=== PATIENT | female | born 1940 | race Caucasian/White ===

== ENCOUNTER → 2016-11-01 | Outpatient (CLI) | payer MEDICARE, OTHER ==
[~2016-11-01] MED LIST: ACYCLOVIR400 MG; BP MED; BYSTOLIC5 MG; ELIQUIS2.5 MG; MACROBID100 M1 PO; NEURONTIN100 MG; NORCO 10-325 TA1 TAB; PROTONIX; ROBAXIN PO; VIROPTIC7.5 ML; VITAMIN D350000 UNIT; XANAX0.5 M1
--- NOTE | ~2016-11-01 | CR63 ---
[facility]. [facility] A Service of [facility] & [facility] RADIOLOGY TEXT RESULTS PATIENT: CARLITO MAN LOCATION: [facility] : 39 UNIT #: [id number] AGE: [address]: Mela Vilchis MD SEX: F ORDER DR: [id number] [address] [id number] O MR#: [id number] Acc #: [id number] NAME: CARLITO MAN : 1940 SEX: F STUDY DATE/TIME: 11/01/2016 13:13 UNIT: [facility] ROOM: STUDY DESCRIPTION: CR Chest 2 View Attending Physician: Mela Vilchis M.D. Referring Physician: Mela Vilchis M.D. Ordering Physician: Mela Vilchis M.D. Primary Care Physician: Mela Vilchis M.D. MEDICAL IMAGING REPORT This report is preliminary unless electronic signature is present. EXAM Two-view chest, 11/01/2016. HISTORY 76-year-old female with chest pain and shortness of air for 2 weeks. COMPARISON Chest, 10/17/2014. FINDINGS Two views of the chest demonstrate clear lungs. No pleural effusion or pneumothorax. Heart size and mediastinum are within normal limits. Pulmonary vasculature unremarkable. Left-sided pacing complex. IMPRESSION No acute cardiopulmonary findings. Dictated by... Josiah Ingram M.D. THIS IS AN ELECTRONICALLY VERIFIED REPORT Josiah Ingram M.D. at 11/06/2016 10:26 AM WANDA/abiodun TD: 11/02/2016 00:56 JOB #: [id number] MEDICAL IMAGING REPORT Page 1 of 1
== END | disposition home or self-care (01) ==
LOC: SRAD 13:07
DX: R07.9 Chest pain, unspecified (principal); R60.0 Localized edema
CPT/HCPCS: 71020

== ENCOUNTER → 2016-11-22 | Outpatient (CLI) | payer MEDICARE, OTHER ==
--- NOTE | ~2016-11-22 | CT52 ---
[facility] A Service of [facility] & [facility] RADIOLOGY TEXT RESULTS PATIENT: CARLITO MAN [facility] UNIT #: [id number] AGE: [address]: Josiah Wyatt MD SEX: F ORDER DR: [id number] [facility] [address] [place], [place] [address] [id number] O MR#: [id number] Acc #: [id number] NAME: CARLITO MAN. : 1940 SEX: F STUDY DATE/TIME: 11/22/2016 14:50 UNIT: [facility] ROOM: STUDY DESCRIPTION: CT Cervical Spine Wo Cont Attending Physician: Josiah Wyatt M.D. Referring Physician: Josiah Wyatt M.D. Ordering Physician: Josiah Wyatt M.D. Primary Care Physician: Mela Vilchis M.D. MEDICAL IMAGING REPORT This report is preliminary unless electronic signature is present EXAM CT cervical spine without contrast HISTORY 76-year-old female complains of neck pain radiating into right arm and down lower back for [address] exam was performed with one or more of the following radiation dose reduction techniques: automatic exposure control, adjustment of mA and/or kV according to patient size, and iterative reconstruction. FINDINGS Thin section axial images performed through the cervical spine with multiplanar reconstructions. No contrast administered. There is loss of the normal cervical lordosis in the midcervical spine. Craniocervical, cervicothoracic junction is unremarkable. Minimal arthritic change atlantoaxial joint. At C2-3 the disc space is maintained. No significant spinal stenosis. There is right C2-3 facet arthropathy. At C3-4 there is extensive left C3-4 foraminal stenosis due to a combination of uncovertebral osteophyte and facet arthropathy. This significantly compromises the exiting foramen. There may be mild posterior disc bulging at C3-4. At C4-5 there is advanced degenerative disc changes with disc space narrowing, broad-based posterior osteophyte. Bilateral foraminal stenosis due to a combination of osteophyte and facet arthropathy particularly on the left. STS. [facility] A Service of [facility] & [facility] RADIOLOGY TEXT RESULTS PATIENT: CARLITO MAN LOCATION: [facility] : 39 UNIT #: [id number] AGE: [address]: Josiah Wyatt MD SEX: F ORDER DR: At C5-6 there is advanced degenerative disc disease with disc space narrowing. Mild central canal stenosis due to a suspected broad-based posterior disc protrusion and mild osteophyte. There is predominately right C5-6 foraminal stenosis due to uncovertebral osteophyte. At C6-7 there is advanced degenerative disc changes with disc space narrowing. Broad-based disc protrusion osteophyte contributes to mild central canal stenosis. There is bilateral foraminal stenosis left greater than right, primarily due to uncovertebral osteophyte. At C7-T1 the disc space is maintained. No spinal or foraminal stenosis. Paravertebral soft tissues unremarkable except for atherosclerotic changes within the take off of the arch vessels. IMPRESSION Multilevel degenerative disc disease as described above in level by level detail. Degenerative disc changes most pronounced C4-5, C5-6 and C7-7. Multilevel foraminal stenosis noted but most severe on the left at C3-4. Please see above for level by level details. Dictated by... Luis M Lacey M.D. THIS IS AN ELECTRONICALLY VERIFIED REPORT Luis M Lacey M.D. at 11/26/2016 5:02 PM Abeba TD: 11/26/2016 13:55 JOB #: [id number] MEDICAL IMAGING REPORT Page 1 of 1 COPY
== END | disposition home or self-care (01) ==
LOC: CCAT 14:15
DX: M48.02 Spinal stenosis, cervical region (principal); M50.122 Cervical disc disorder at C5-C6 level with radiculopathy; M47.22 Other spondylosis with radiculopathy, cervical region
CPT/HCPCS: 72125

== ENCOUNTER 2016-12-13 22:17 | Emergency (ER) | payer MEDICARE, OTHER ==
[~2016-12-13] VITALS: Ht 170.2 cm; Wt 83.0 kg
--- NOTE | ~2016-12-13 | CT4 ---
[facility] A Service of [facility] & [facility] RADIOLOGY TEXT RESULTS PATIENT: CARLITO MAN LOCATION: SED : 39 UNIT #: [id number] AGE: [address]: Gricelda Bernard APRN SEX: F ORDER DR: [id number] [place] [id number] E MR#: [id number] Acc #: [id number] NAME: CARLITO MAN. : 1940 SEX: F STUDY DATE/TIME: 12/13/2016 23:03 UNIT: SED ROOM: STUDY DESCRIPTION: CT Abd and Pelv Wo Cont Attending Physician: Gricelda Bernard A.P.R.N. Ordering Physician: Gricelda Bernard A.P.R.N. Primary Care Physician: Mela Vilchis M.D. MEDICAL IMAGING REPORT This report is preliminary unless electronic signature is present. EXAM Abdomen and pelvis CT, 12/13/2016 at 23:03. INDICATIONS Low back pain today with left flank pain. Pain currently rates 4 out of 10. TECHNIQUE Axial noncontrast images were obtained through the abdomen and pelvis. Multiplanar reformats were obtained. This CT exam was performed with one or more of the following radiation dose reduction techniques: automatic exposure control, adjustment of mA and/or kV according to patient size, and iterative reconstruction. COMPARISON No comparison CT of the abdomen and pelvis. FINDINGS ABDOMEN: Lung bases are clear. The gallbladder is surgically absent. There are 2 right-side renal cysts. No renal or ureteral stones are seen. There is no hydronephrosis. Unenhanced solid organs are otherwise unremarkable. 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 The patient may also have a [place]. Correlate clinically. No bowel obstruction is seen. The unopacified GI tract is otherwise are grossly normal. No free fluid. PELVIS: Urinary bladder is normal. Uterus is surgically absent. No free fluid. Unopacified GI tract is grossly normal. There is severe degenerative disease with scoliosis in the lumbar spine. IMPRESSION 1. No acute findings in the abdomen or pelvis. 2. No renal or ureteral stones. No hydronephrosis. STS. [facility] A Service of [facility] & [facility] RADIOLOGY TEXT RESULTS PATIENT: CARLITO MAN LOCATION: SED : 39 UNIT #: [id number] AGE: [address]: Gricelda Bernard [employer] WORKER SEX: F ORDER DR: 3. Postoperative changes in the GI tract. No bowel obstruction or evidence of bowel inflammation identified. 4. Cholecystectomy and hysterectomy. Dictated by... Mack Merino Jr., M.D. THIS IS AN ELECTRONICALLY VERIFIED REPORT Mack Merino Jr., M.D. at 12/15/2016 4:55 AM VANNA/marina TD: 12/14/2016 21:03 JOB #: [id number] MEDICAL IMAGING REPORT Page 1 of 1
[~2016-12-13 22:17] MED LIST changes: -ACYCLOVIR400 MG; -BYSTOLIC5 MG; -MACROBID100 M1 PO; -PROTONIX; -ROBAXIN PO; -VIROPTIC7.5 ML; -VITAMIN D350000 UNIT; -XANAX0.5 M1
[2016-12-13] MEDS ORDERED: XANAX0.5 M1 (22:27)
[2016-12-13] MEDS ORDERED: BYSTOLIC5 MG (22:27)
[2016-12-13] MEDS ORDERED: PROTONIX (22:27)
[2016-12-13] MEDS ORDERED: VIROPTIC7.5 ML (22:28)
[2016-12-13] MEDS ORDERED: ACYCLOVIR400 MG (22:28)
[2016-12-13] MEDS ORDERED: VITAMIN D350000 UNIT (22:28)
[2016-12-13 23:17] LABS: URINE SOURCE CLEAN CATCH
[2016-12-13 23:17] LABS: BASOPHIL% 0.6 % (0-2.5); EOSINOPHIL# 0.1 X10e3 (0-0.7); EOSINOPHIL% 1.9 % (0.0-7.0); HEMOGLOBIN 11.8 gm/dL (12.0-16.0); LYMPHOCYTE# 2.6 X10e3 (1.0-3.5); LYMPHOCYTE% 36.9 % (17.0-45.0); MEAN CELL VOLUME 96.2 FL (83-96); MEAN CORPUSCULAR HEMOGLOBIN 31.4 PG (28-34); MEAN CORPUSCULAR HGB CONC 32.7 g/dL (30-36); MEAN PLATELET VOLUME 9.2 FL (6.5-11.5); MONOCYTE# 0.6 X10e3 (0-1.0); MONOCYTE% 9.1 % (3.0-12.0); NEUTROPHIL# 3.6 X10e3 (1.5-7.1); NEUTROPHIL% 51.5 % (40-75); PLATELET COUNT 191 X10e3 (140-420); RED BLOOD COUNT 3.75 X10e (3.90-5.30); RED CELL DISTRIBUTION WIDTH 14.8 % (11.0-15.5)
[2016-12-13 23:18] LABS: DIFF IND NO
[2016-12-13 23:19] LABS: URINE APPEARANCE CLEAR; URINE BILIRUBIN NEG (NEG); URINE BLOOD 1+ (NEG); URINE COLOR YELLOW; URINE GLUCOSE NEG (NORM); URINE KETONE NEG (NEG); URINE LEUKOCYTE ESTERASE 2+ (NEG); URINE NITRATE NEG (NEG); URINE PROTEIN NEG (NEG); URINE SPECIFIC GRAVITY <=1.005 (1.003-1.035); URINE UROBILINOGEN 0.2 MG/DL (NORM)
[2016-12-13 23:23] LABS: MICRO INDICATED? YES
[2016-12-13 23:24] LABS: URINE WBC 25-50 /[HPF] (0-5)
[2016-12-13 23:25] LABS: CULTURE INDICATED? YES; URINE BACTERIA 1+ (NEG); URINE SQUAMOUS EPITHELIAL CELL OCCAS /[HPF]; URINE TRANSITIONAL EPI CELLS FEW /[HPF]
[2016-12-13 23:32] LABS: ALBUMIN SERUM 4.3 g/dL (3.5-5.0); BILIRUBIN,TOTAL 0.4 mg/dL (0.2-2.0); BUN/CREATININE RATIO 16.66; CALCIUM SERUM 8.9 mg/dL (8.4-10.2); CREATININE SERUM 0.9 mg/dL (0.6-1.4); GLOM FILT RATE Estimated 61.7 mL/min (>60); POTASSIUM 3.8 mmol/L (3.5-5.1); PROTEIN TOTAL SERUM 7.2 g/dL (6.0-8.3)
[2016-12-13] MEDS ORDERED: ROBAXIN PO (23:52)
[2016-12-13] MEDS ORDERED: MACROBID100 M1 PO (23:53)
== END 2016-12-13 23:59 | disposition home or self-care (01) ==
LOC: SED 22:17
PROVIDERS: Nurse Practitioner Family
DX: N39.0 Urinary tract infection, site not specified (principal); Z90.710 Acquired absence of both cervix and uterus; Z98.890 Other specified postprocedural states; Z88.0 Allergy status to penicillin; Z88.2 Allergy status to sulfonamides; Z88.1 Allergy status to other antibiotic agents; Z88.8 Allergy status to other drugs, medicaments and biological substances; Z79.899 Other long term (current) drug therapy
CPT/HCPCS: 36415; 74176; 80053; 81003; 85025; 87086; 87088; 87186; 99284